=== PATIENT | female | born 1990 | race Caucasian/White ===

== ENCOUNTER 2016-05-03 06:46 | Emergency (ER) | payer SELFPAY ==
[~2016-05-03] VITALS: Ht 157.5 cm; Wt 55.8 kg
[2016-05-03 07:52] VITALS: BP 11/56
--- NOTE | 2016-05-03 07:59 | PHYS DOC ---
Adult General Chief Complaint Chief Complaint: SORE THROAT HPI HPI Patient is a 26 year old female who is in her third trimester complaining that since Sunday night, April 30, she has had a sore throat and a cough. Her cough has been productive and sometimes has some blood in it. Her voice is hoarse and her throat is sore. She denies fever. She has not had body aches. She hasn't taken any medicine for her symptoms because she is and wanted to be careful. She is no longer a smoker, she quit smoking when she found out she was . Patient lives in [facility] and gets her OB care there from Dr. Nation. She is in town visiting. Next appointment is May 12. Review of Systems Review of Systems Constitutional: Denies fever or chills [] Eyes: Denies change in visual acuity, redness, or eye pain [] HENT: As in history of present illness Respiratory: Complains of cough which is productive Cardiovascular: No cardiac sounding chest pain GI: As in history of present illness she is Musculoskeletal: Denies back pain or joint pain [] Integument: Denies rash or skin lesions [] Neurologic: Denies headache, focal weakness or sensory changes [] Physical Exam Physical Exam Constitutional: Well developed, well nourished, no acute distress, non-toxic appearance. Hoarse voice but handling her secretions and swallowing fine, HENT: Normocephalic, atraumatic, bilateral external ears normal, oral mucous membranes moist, tonsils not visible, oropharynx not read with no exudates and no other lesions, nose normal. [] Eyes: conjunctiva normal, no discharge. [] Neck: Normal range of motion, no stridor. [] Cardiovascular:Heart rate regular rhythm, no murmur [] Lungs & Thorax: Bilateral breath sounds clear to auscultation [] Skin: Warm, dry, no erythema, no rash. [] Extremities: No tenderness, no cyanosis, no clubbing, ROM intact, no edema. [] Neurologic: Alert and oriented X 3, normal motor function, normal sensory function, no focal deficits noted. [] EKG EKG [] Radiology/Procedures Radiology/Procedures [] Course & Med Decision Making Course & Med Decision Making Pertinent Labs and Imaging studies reviewed. (See chart for details) 26-year-old female in her third trimester presents with a sore throat and cough, she has no chronic lung disease, she has not had a tonsillectomy but her tonsils are not visible, her oropharynx exam is benign. I talked to the patient about symptomatic relief of likely viral syndrome. She does have a OB appointment coming up next week with her physician [] Carla Disclaimer Carla Disclaimer This electronic medical record was generated, in whole or in part, using a voice recognition dictation system. Departure Departure Impression: Primary Impression: Viral pharyngitis Additional Impression: Viral bronchitis Disposition: 01 HOME, SELF-CARE Condition: STABLE Referrals: NO PCP (PCP) Patient Instructions: Acute Bronchitis, [id number], Viral Pharyngitis Additional Instructions: As we discussed, I think your symptoms are from a virus, and do not require antibiotics. It may last several days. Stay home and rest, drink plenty of fluids. It is safe to take acetaminophen Tylenol [id number] as directed for pain including sore throat pain. Also, use throat lozenges such as Chloraseptic sore throat lozenges to numb your throat. Sore throat spray such as Chloraseptic. Warm drinks like decaf hot tea with honey might be helpful. Problem Qualifiers JEROME PETERSEN MD May 03, 2016 07:58
== END 2016-05-03 08:05 | disposition home or self-care (01) ==
LOC: ER 06:46
DX: O99.513 Diseases of the respiratory system complicating pregnancy, third trimester (principal); J02.9 Acute pharyngitis, unspecified; J20.8 Acute bronchitis due to other specified organisms; Z3A.27 27 weeks gestation of pregnancy; Z87.891 Personal history of nicotine dependence
CPT/HCPCS: 99281